=== PATIENT | male | born 1965 | race Caucasian/White ===

== ENCOUNTER → 2016-11-01 | Outpatient (CLI) | payer OTHER ==
--- NOTE | 2016-11-01 13:50 | RAD ---
Bone densitometry scan, 11/01/2016: History: Low back pain, osteoporosis screening The lumbar spine and right hip were examined utilizing a DEXA technique. The bone mineral density in the lumbar spine as measured from the L1-L4 levels is 1.06 g/sq cm yielding a T score of -1.0. This is considered to be at the lower limits of normal. The total T score at the right hip is -0.1 which is in the normal range. IMPRESSION: 1. The lumbar spine T score is at the lower limits of normal. 2. Normal right hip bone density measurements.
== END | disposition home or self-care (01) ==
LOC: DXRAD 11:03
PROVIDERS: ATTEND Family Medicine Sports Medicine
DX: Z13.820 Encounter for screening for osteoporosis (principal); M54.5 Low back pain
CPT/HCPCS: 77080

== ENCOUNTER → 2017-09-06 | Outpatient (CLI) | payer OTHER ==
[~2017-09-06] MED LIST: BUPIVACAINE MPF 0.25% 10 ML VIAL. ONE; BUPR150T15 PO; BUSP5TAB PO; DEXAMETHASONE SOD PHOS 4 MG/ML VIAL ONE; DIAZ5TAB4 PO; DULO60CA6 PO; FENO145T32 PO; FLUO40CA2 PO; HYDR-2766 PO; IV RINGERS SOLUTION,LACTATED 1,000 ML IV ONE; IV RINGERS SOLUTION,LACTATED 1,000 ML IV SCH; LIDOCAINE 1% PF 30 ML VIAL. ONE; LISI-338 PO; MIDAZOLAM HCL PF 2 MG/2 ML VIAL. ONE; MORP15TA80 PO; OMEP20TA63 PO; RANI150T6 PO; SERT100T PO; SIMV40TA PO
[2017-09-06 10:46] VITALS: BP 133/73
== END | disposition home or self-care (01) ==
LOC: SURG 07:43
PROVIDERS: ATTEND Anesthesiology Pain Medicine
DX: M47.816 Spondylosis without myelopathy or radiculopathy, lumbar region (principal); F32.9 Major depressive disorder, single episode, unspecified; K21.9 Gastro-esophageal reflux disease without esophagitis; G47.30 Sleep apnea, unspecified; Z85.820 Personal history of malignant melanoma of skin; Z98.890 Other specified postprocedural states; Z72.89 Other problems related to lifestyle; Z79.899 Other long term (current) drug therapy
CPT/HCPCS: 64493; 64494; 64635; 64636; 99213; J1100; J2001; J2250; J3010; J3490; J7120; 64495

== ENCOUNTER → 2017-09-14 | Outpatient (CLI) | payer OTHER ==
[~2017-09-14] MED LIST changes: -IV RINGERS SOLUTION,LACTATED 1,000 ML IV ONE; -SERT100T PO; +SERT20OR PO
[2017-09-14 10:30] VITALS: BP 120/75
== END | disposition home or self-care (01) ==
LOC: SURG 07:42
PROVIDERS: ATTEND Anesthesiology Pain Medicine
DX: M47.816 Spondylosis without myelopathy or radiculopathy, lumbar region (principal); M54.5 Low back pain; I10 Essential (primary) hypertension; K21.9 Gastro-esophageal reflux disease without esophagitis; Z98.890 Other specified postprocedural states; Z79.899 Other long term (current) drug therapy
CPT/HCPCS: 64635; 64636; 99213; J1100; J2001; J2250; J3010; J3490; J7120

== ENCOUNTER → 2018-05-03 | Outpatient (CLI) | payer OTHER ==
[2017-09-14 10:30] VITALS: BP 120/75
[~2018-05-03] MED LIST changes: -BUPIVACAINE MPF 0.25% 10 ML VIAL. ONE; -DEXAMETHASONE SOD PHOS 4 MG/ML VIAL ONE; -IV RINGERS SOLUTION,LACTATED 1,000 ML IV SCH; -LIDOCAINE 1% PF 30 ML VIAL. ONE; -MIDAZOLAM HCL PF 2 MG/2 ML VIAL. ONE; +RANI150T21 PO; -RANI150T6 PO; +SERT100T PO; -SERT20OR PO
== END | disposition home or self-care (01) ==
LOC: SURG 11:52
PROVIDERS: ATTEND Anesthesiology Pain Medicine
DX: M47.26 Other spondylosis with radiculopathy, lumbar region (principal); M51.16 Intervertebral disc disorders with radiculopathy, lumbar region; M62.838 Other muscle spasm; G89.29 Other chronic pain; K21.9 Gastro-esophageal reflux disease without esophagitis; Z72.89 Other problems related to lifestyle; Z85.89 Personal history of malignant neoplasm of other organs and systems
CPT/HCPCS: 99214

== ENCOUNTER → 2018-05-17 | Outpatient (CLI) | payer OTHER ==
[2017-09-14 10:30] VITALS: BP 120/75
[~2018-05-17] MED LIST changes: +0.9 % SODIUM CHLORIDE 10 ML VIAL ONE; +IOHEXOL 300 MG/ML 50 ML VIAL. ONE; +LIDOCAINE 1% PF 2 ML VIAL. ONE; +methylPREDNISolone ACETATE 80 MG/ML VIAL. ONE
== END | disposition home or self-care (01) ==
LOC: SURG 08:06
PROVIDERS: ATTEND Anesthesiology Pain Medicine
DX: M54.16 Radiculopathy, lumbar region (principal); M47.816 Spondylosis without myelopathy or radiculopathy, lumbar region; M54.12 Radiculopathy, cervical region; K21.9 Gastro-esophageal reflux disease without esophagitis; C43.9 Malignant melanoma of skin, unspecified; Z98.890 Other specified postprocedural states; Z79.899 Other long term (current) drug therapy
CPT/HCPCS: 62323; J1040; Q9967

== ENCOUNTER → 2018-09-20 | Outpatient (CLI) | payer OTHER ==
[2017-09-14 10:30] VITALS: BP 120/75
[~2018-09-20] MED LIST changes: -0.9 % SODIUM CHLORIDE 10 ML VIAL ONE; +BUPIVACAINE MPF 0.25% 10 ML VIAL. ONE; -HYDR-2766 PO; +HYDR-2769 PO; -IOHEXOL 300 MG/ML 50 ML VIAL. ONE; -LIDOCAINE 1% PF 2 ML VIAL. ONE; +LIDOCAINE 1% PF 30 ML VIAL. ONE; -methylPREDNISolone ACETATE 80 MG/ML VIAL. ONE
== END | disposition home or self-care (01) ==
LOC: SURG 12:12
PROVIDERS: ATTEND Anesthesiology Pain Medicine
DX: M47.812 Spondylosis without myelopathy or radiculopathy, cervical region (principal); K21.9 Gastro-esophageal reflux disease without esophagitis; Z85.820 Personal history of malignant melanoma of skin; Z98.890 Other specified postprocedural states; Z79.899 Other long term (current) drug therapy; G47.33 Obstructive sleep apnea (adult) (pediatric); Z72.89 Other problems related to lifestyle; M19.90 Unspecified osteoarthritis, unspecified site
CPT/HCPCS: 64490; 64491; 64492; J2001; J3490

== ENCOUNTER → 2018-10-12 | Day surgery (SDC) | payer OTHER ==
[~2018-10-12] MED LIST changes: +DEXAMETHASONE SOD PHOS 4 MG/ML VIAL ONE; +MIDAZOLAM HCL PF 2 MG/2 ML VIAL. ONE
[2018-10-12 09:41] VITALS: BP 146/79
== END | disposition home or self-care (01) ==
LOC: SURG 07:31
PROVIDERS: ATTEND Anesthesiology Pain Medicine
DX: M47.812 Spondylosis without myelopathy or radiculopathy, cervical region (principal); G47.33 Obstructive sleep apnea (adult) (pediatric); K21.9 Gastro-esophageal reflux disease without esophagitis; Z72.89 Other problems related to lifestyle; M19.90 Unspecified osteoarthritis, unspecified site; Z85.828 Personal history of other malignant neoplasm of skin; Z98.890 Other specified postprocedural states; Z79.84 Long term (current) use of oral hypoglycemic drugs; Z79.899 Other long term (current) drug therapy
CPT/HCPCS: 64633; 64634; J1100; J2001; J2250; J3010; J3490

== ENCOUNTER → 2018-10-25 | Day surgery (SDC) | payer OTHER ==
[2018-10-25 11:31] VITALS: BP 145/77
== END | disposition home or self-care (01) ==
LOC: SURG 09:43
PROVIDERS: ATTEND Anesthesiology Pain Medicine
DX: M47.812 Spondylosis without myelopathy or radiculopathy, cervical region (principal); G47.30 Sleep apnea, unspecified; M19.90 Unspecified osteoarthritis, unspecified site; Z72.89 Other problems related to lifestyle; Z85.828 Personal history of other malignant neoplasm of skin; Z98.890 Other specified postprocedural states; Z79.899 Other long term (current) drug therapy
CPT/HCPCS: 64633; 64634; J1100; J2001; J2250; J3010; J3490